=== PATIENT | male | born 1965 | race Caucasian/White ===

== ENCOUNTER 2017-05-29 06:26 | Inpatient (IN) | payer OTHER ==
[2017-05-29] MEDS ORDERED: CEFAZOLIN 1 GM INJ (07:00)
[2017-05-29] MEDS ORDERED: HEPARIN 1000 UNITS/NS (A-LINE) 0 ML (07:40)
[2017-05-29] MEDS ORDERED: THROMBIN 5000 UNIT VIAL (07:52)
[2017-05-29] MEDS ORDERED: MIDAZOLAM 1 MG/ML 2 ML INJ (08:08)
[2017-05-29] MEDS ORDERED: PHENYLephrine (100 MCG/ML) 5ML SYG ×2 (08:13→10:06)
[2017-05-29] MEDS ORDERED: hydrALAzine 20 MG INJ (09:26)
[2017-05-29] MEDS ORDERED: NALOXONE (0.4 MG/ML) INJ IV (09:30)
[2017-05-29] MEDS: CEFAZOLIN 1 GM INJ (09:30)
[2017-05-29] MEDS: GELATIN SIZE 100 SPONGE (10:44)
[2017-05-29] MEDS: HEPARIN 1000 UNITS/ML 10 ML INJ (10:44)
[2017-05-29] MEDS ORDERED: PROPOFOL 20 ML (11:13)
[2017-05-29] MEDS ORDERED: LIDOCAINE 100 MG SYRINGE (11:13)
[2017-05-29] MEDS ORDERED: NEOSTIGMINE 3 MG/3 ML SYRINGE (11:13)
[2017-05-29] MEDS ORDERED: ROCURONIUM 50 MG INJ (11:13)
[2017-05-29] MEDS ORDERED: GLYCOPYRROLATE 0.4 MG INJ (11:13)
[2017-05-29] MEDS ORDERED: ONDANSETRON 4 MG INJ (11:13)
[2017-05-29] MEDS ORDERED: FENTAnyl 50 MCG/ML VIAL (11:29)
[2017-05-29] MEDS ORDERED: HYDROmorphONE (0.2 MG/ML) 10ML SYG IV ×2 (11:29→11:30)
[2017-05-29] MEDS ORDERED: MEPERIDINE 25 MG INJ IV (11:30)
[2017-05-29] MEDS ORDERED: DIPHENHYDRAMINE 50 MG INJ IV (11:30)
[2017-05-29] MEDS ORDERED: FENTAnyl 50 MCG/ML VIAL IV (11:30)
[2017-05-29] MEDS: HYDROmorphONE 0.5 MG/0.5 ML SYG IV ×3 (11:36→18:52)
[2017-05-29] MEDS: THROMBIN 5000 UNIT VIAL (11:41)
[2017-05-29] MEDS: HYDROmorphONE (0.2 MG/ML) 10ML SYG IV ×2 (11:47→11:59)
[2017-05-29] MEDS: ONDANSETRON 4 MG INJ IV (11:48)
[2017-05-29] MEDS: CEFAZOLIN 2 GM/50 ML (PMX) 50 ML IVPB ×2 (15:41→22:01)
[2017-05-29] MEDS ORDERED: NICOTINE POLACRILEX 2 MG GUM BUCCAL (20:00)
[2017-05-29] MEDS ORDERED: ONDANSETRON 4 MG INJ IV (20:30)
[2017-05-29] MEDS ORDERED: GLUCOSE GEL 15 GRAM TUBE BUCCAL (21:00)
[2017-05-29] MEDS: INSULIN ASPART [NOVOLOG] 3 ML PEN SC (21:00)
[2017-05-29] MEDS ORDERED: GABAPENTIN 400 MG CAP PO (21:00)
[2017-05-29] MEDS ORDERED: DEXTROSE 50% 50 ML SYRINGE IV ×2 (21:00)
[2017-05-29] MEDS ORDERED: GLUCOSE GEL 15 GRAM TUBE PO ×2 (21:00)
[2017-05-29] MEDS ORDERED: GLUCAGON 1 MG INJ IM (21:00)
[2017-05-29] MEDS: HYDROCODONE/APAP (5/325) TAB PO (21:20)
[2017-05-29] MEDS: GABAPENTIN 400 MG CAP PO (21:21)
[2017-05-29] MEDS: metFORMIN 500 MG TAB PO (21:59)
[2017-05-29] MEDS: SILVER SULFADIAZINE 1% 25 GM CR TOP (21:59)
[2017-05-29] MEDS: DIVALPROEX (EC) 250 MG TAB PO (21:59)
[2017-05-29] MEDS: DIVALPROEX (EC) 500 MG TAB PO (21:59)
[2017-05-30] MEDS: HYDROmorphONE 0.5 MG/0.5 ML SYG IV ×2 (00:38→14:58)
[2017-05-30] MEDS: ACCU-CHEK XX (01:15)
[2017-05-30] MEDS: HYDROCODONE/APAP (5/325) TAB PO ×5 (02:20→21:33)
[2017-05-30] MEDS: CEFAZOLIN 2 GM/50 ML (PMX) 50 ML IVPB ×3 (05:26→21:32)
[2017-05-30 06:44] LABS: HEMATOCRIT 28.5 % (42.0-52.0); HEMOGLOBIN 9.8 g/dl (14.0-18.0)
[2017-05-30 07:06] LABS: ANION GAP 14 (8-16); BLOOD UREA NITROGEN 17 mg/dl (7-20); CALCIUM 8.9 mg/dl (8.4-10.2); CARBON DIOXIDE 24 mmol/L (21-31); CHLORIDE 100 mmol/L (97-110); CREATININE 0.55 mg/dl (0.61-1.24); GLUCOSE 137 mg/dl (70-220); POTASSIUM 3.6 mmol/L (3.5-5.1); SODIUM 134 mmol/L (135-144)
[2017-05-30] MEDS: INSULIN ASPART [NOVOLOG] 3 ML PEN SC ×4 (07:55→21:00)
[2017-05-30] MEDS: GABAPENTIN 400 MG CAP PO ×2 (08:15→21:31)
[2017-05-30] MEDS: LISINOPRIL 20 MG TAB PO (08:16)
[2017-05-30] MEDS: AMLODIPINE 5 MG TAB PO (08:16)
[2017-05-30] MEDS: metFORMIN 500 MG TAB PO ×2 (08:16→17:20)
[2017-05-30] MEDS: SILVER SULFADIAZINE 1% 25 GM CR TOP ×2 (08:17→21:32)
[2017-05-30] MEDS ORDERED: LISINOPRIL 10 MG TAB PO (09:00)
[2017-05-30] MEDS ORDERED: DOCUSATE SODIUM 100 MG CAP PO (14:56)
[2017-05-30] MEDS: DOCUSATE SODIUM 100 MG CAP PO (15:00)
[2017-05-30] MEDS: BISACODYL (EC) 5 MG TAB PO (17:20)
[2017-05-30] MEDS ORDERED: metFORMIN 500 MG TAB PO (17:55)
[2017-05-30] MEDS: DIVALPROEX (EC) 250 MG TAB PO (21:31)
[2017-05-30] MEDS: DIVALPROEX (EC) 500 MG TAB PO (21:31)
[2017-05-30] MEDS: LURASIDONE 80 MG PO (21:47)
[2017-05-30] MEDS: VARENICLINE 1 MG TAB PO (21:48)
[2017-05-31] MEDS: HYDROCODONE/APAP (5/325) TAB PO ×6 (01:33→22:45)
[2017-05-31] MEDS: ACCU-CHEK XX (01:42)
[2017-05-31] MEDS: CEFAZOLIN 2 GM/50 ML (PMX) 50 ML IVPB ×3 (05:33→21:00)
[2017-05-31] MEDS: DOCUSATE SODIUM 100 MG CAP PO ×2 (05:37→17:05)
[2017-05-31 06:46] LABS: ADD MAN DIFF? NO
[2017-05-31 06:53] LABS: WHITE BLOOD COUNT 9.5 10^3/ul (4.8-10.8)
[2017-05-31 06:53] LABS: EOSINOPHILS # 0.2 10^3/ul (0.0-0.5); EOSINOPHILS % 1.7 % (0.0-7.0); HEMATOCRIT 26.4 % (42.0-52.0); HEMOGLOBIN 9.1 g/dl (14.0-18.0); LYMPHOCYTES # 1.9 10^3/ul (0.8-2.9); LYMPHOCYTES % 20.2 % (15.0-51.0); MEAN CORPUSCULAR HEMOGLOBIN 33.3 pg (29.0-33.0); MEAN CORPUSCULAR HGB CONC 34.5 g/dl (32.0-37.0); MEAN CORPUSCULAR VOLUME 96.7 fl (82.0-101.0); MEAN PLATELET VOLUME 9.5 fl (7.4-10.4); MONOCYTE # 1.5 10^3/ul (0.3-0.9); MONOCYTES % 15.4 % (0.0-11.0); NEUTROPHIL # 5.9 10^3/ul (1.6-7.5); NEUTROPHILS % 62.3 % (39.0-77.0); PLATELET COUNT 315 10^3/UL (140-415); RED BLOOD COUNT 2.73 10^6/ul (4.70-6.10); RED CELL DISTRIBUTION WIDTH 13.5 % (11.5-14.5)
[2017-05-31 07:22] LABS: ANION GAP 12 (8-16); BLOOD UREA NITROGEN 10 mg/dl (7-20); CALCIUM 8.9 mg/dl (8.4-10.2); CARBON DIOXIDE 25 mmol/L (21-31); CHLORIDE 102 mmol/L (97-110); CREATININE 0.59 mg/dl (0.61-1.24); GLUCOSE 109 mg/dl (70-220); POTASSIUM 4.1 mmol/L (3.5-5.1); SODIUM 135 mmol/L (135-144)
[2017-05-31] MEDS: INSULIN ASPART [NOVOLOG] 3 ML PEN SC ×4 (07:55→20:49)
[2017-05-31] MEDS: GABAPENTIN 400 MG CAP PO ×2 (08:21→20:54)
[2017-05-31] MEDS: BISACODYL (EC) 5 MG TAB PO (08:22)
[2017-05-31] MEDS: VARENICLINE 1 MG TAB PO ×2 (08:22→20:53)
[2017-05-31] MEDS: metFORMIN 500 MG TAB PO ×2 (08:22→17:05)
[2017-05-31] MEDS: SILVER SULFADIAZINE 1% 25 GM CR TOP ×2 (08:23→20:54)
[2017-05-31] MEDS: AMLODIPINE 5 MG TAB PO (08:23)
[2017-05-31] MEDS: LISINOPRIL 20 MG TAB PO (08:23)
[2017-05-31] MEDS: HYDROmorphONE 0.5 MG/0.5 ML SYG IV ×3 (08:29→20:55)
[2017-05-31 10:06] LABS: MAGNESIUM 1.6 mg/dl (1.7-2.5)
[2017-05-31 10:44] LABS: THYROID STIMULATING HORMONE 0.177 MIU/L (0.465-4.680)
[2017-05-31] MEDS: MAGNESIUM SULFATE 3 GM in DEXTROSE 5% 100 ML IVPB (17:06)
[2017-05-31] MEDS: LURASIDONE 80 MG PO (20:52)
[2017-05-31] MEDS: DIVALPROEX (EC) 500 MG TAB PO (20:53)
[2017-05-31] MEDS: DIVALPROEX (EC) 250 MG TAB PO (20:54)
[2017-06-01] MEDS: ACCU-CHEK XX (01:27)
[2017-06-01] MEDS: HYDROCODONE/APAP (5/325) TAB PO ×5 (03:24→21:29)
[2017-06-01] MEDS: CEFAZOLIN 2 GM/50 ML (PMX) 50 ML IVPB ×3 (05:21→21:00)
[2017-06-01] MEDS: INSULIN ASPART [NOVOLOG] 3 ML PEN SC ×4 (07:55→21:00)
[2017-06-01] MEDS: metFORMIN 500 MG TAB PO ×2 (08:14→18:10)
[2017-06-01] MEDS: AMLODIPINE 5 MG TAB PO (08:14)
[2017-06-01] MEDS: LISINOPRIL 20 MG TAB PO (08:15)
[2017-06-01] MEDS: GABAPENTIN 400 MG CAP PO ×2 (08:15→21:01)
[2017-06-01] MEDS: VARENICLINE 1 MG TAB PO ×2 (08:16→21:02)
[2017-06-01] MEDS: SILVER SULFADIAZINE 1% 25 GM CR TOP ×2 (08:18→21:00)
[2017-06-01] MEDS: HYDROmorphONE 0.5 MG/0.5 ML SYG IV ×3 (11:26→23:40)
[2017-06-01] MEDS: DIVALPROEX (EC) 500 MG TAB PO (21:01)
[2017-06-01] MEDS: LURASIDONE 80 MG PO (21:02)
[2017-06-01] MEDS: DIVALPROEX (EC) 250 MG TAB PO (21:29)
[2017-06-02] MEDS: ACCU-CHEK XX (02:00)
[2017-06-02] MEDS: HYDROCODONE/APAP (5/325) TAB PO ×6 (03:30→23:52)
[2017-06-02] MEDS: CEFAZOLIN 2 GM/50 ML (PMX) 50 ML IVPB ×3 (06:31→21:03)
[2017-06-02] MEDS: HYDROmorphONE 0.5 MG/0.5 ML SYG IV ×4 (06:31→21:44)
[2017-06-02 07:29] LABS: ADD MAN DIFF? NO
[2017-06-02 07:33] LABS: WHITE BLOOD COUNT 7.3 10^3/ul (4.8-10.8)
[2017-06-02 07:33] LABS: EOSINOPHILS # 0.1 10^3/ul (0.0-0.5); EOSINOPHILS % 1.9 % (0.0-7.0); HEMATOCRIT 29.7 % (42.0-52.0); HEMOGLOBIN 10.3 g/dl (14.0-18.0); LYMPHOCYTES # 1.6 10^3/ul (0.8-2.9); LYMPHOCYTES % 22.4 % (15.0-51.0); MEAN CORPUSCULAR HEMOGLOBIN 33.1 pg (29.0-33.0); MEAN CORPUSCULAR HGB CONC 34.7 g/dl (32.0-37.0); MEAN CORPUSCULAR VOLUME 95.5 fl (82.0-101.0); MEAN PLATELET VOLUME 9.5 fl (7.4-10.4); MONOCYTES % 13.2 % (0.0-11.0); NEUTROPHIL # 4.5 10^3/ul (1.6-7.5); PLATELET COUNT 389 10^3/UL (140-415); RED BLOOD COUNT 3.11 10^6/ul (4.70-6.10); RED CELL DISTRIBUTION WIDTH 12.7 % (11.5-14.5)
[2017-06-02 07:34] LABS: PLATELET COUNT 396 10^3/UL (140-415)
[2017-06-02] MEDS: INSULIN ASPART [NOVOLOG] 3 ML PEN SC ×4 (07:50→21:00)
[2017-06-02 08:11] LABS: FREE T4 (FREE THYROXINE) 1.23 ng/dl (0.64-1.79)
[2017-06-02 08:15] LABS: INR 0.98; PARTIAL THROMBOPLASTIN TIME 31.4 Sec (25.0-35.0); PROTIME 13.1 Sec (11.9-14.9)
[2017-06-02] MEDS: GABAPENTIN 400 MG CAP PO ×2 (08:16→21:03)
[2017-06-02] MEDS: LISINOPRIL 20 MG TAB PO (08:16)
[2017-06-02] MEDS: metFORMIN 500 MG TAB PO ×2 (08:17→17:52)
[2017-06-02] MEDS: AMLODIPINE 5 MG TAB PO (08:17)
[2017-06-02] MEDS: VARENICLINE 1 MG TAB PO ×2 (08:18→21:00)
[2017-06-02] MEDS: SILVER SULFADIAZINE 1% 25 GM CR TOP ×2 (08:19→21:01)
[2017-06-02 08:27] LABS: THYROID STIMULATING HORMONE 0.716 MIU/L (0.465-4.680)
[2017-06-02 08:27] LABS: THROMBIN TIME 13.2 SEC (13.8-19.1)
[2017-06-02] MEDS ORDERED: VITAMIN A & D 5 GM OINT PACKET TOP (08:36)
[2017-06-02 09:08] LABS: ANION GAP 12 (8-16); BLOOD UREA NITROGEN 15 mg/dl (7-20); CALCIUM 9.6 mg/dl (8.4-10.2); CARBON DIOXIDE 25 mmol/L (21-31); CHLORIDE 101 mmol/L (97-110); CREATININE 0.63 mg/dl (0.61-1.24); GLUCOSE 116 mg/dl (70-220); POTASSIUM 3.9 mmol/L (3.5-5.1); SODIUM 134 mmol/L (135-144)
[2017-06-02] MEDS: DOCUSATE SODIUM 100 MG CAP PO (10:13)
[2017-06-02] MEDS: LURASIDONE 80 MG PO (21:00)
[2017-06-02] MEDS: DIVALPROEX (EC) 500 MG TAB PO (21:02)
[2017-06-02] MEDS: DIVALPROEX (EC) 250 MG TAB PO (21:02)
[2017-06-03] MEDS: HYDROmorphONE 0.5 MG/0.5 ML SYG IV ×7 (01:21→21:55)
[2017-06-03] MEDS: ACCU-CHEK XX (01:45)
[2017-06-03] MEDS: Insulin NOVOLOG SS MILD Algorithm (NPO/TPN/ENTERAL FEEDS) SC ×5 (05:00→20:15)
[2017-06-03] MEDS ORDERED: INSULIN ASPART [NOVOLOG] 3 ML PEN SC (05:00)
[2017-06-03] MEDS: CEFAZOLIN 2 GM/50 ML (PMX) 50 ML IVPB ×3 (05:15→21:23)
[2017-06-03] MEDS ORDERED: SUCCINYLCHOLINE CHLORIDE 100 MG/5 ML SYG IV (07:00)
[2017-06-03] MEDS: metFORMIN 500 MG TAB PO ×2 (07:18→17:35)
[2017-06-03 07:20] LABS: ADD MAN DIFF? NO
[2017-06-03 07:25] LABS: EOSINOPHILS # 0.3 10^3/ul (0.0-0.5); EOSINOPHILS % 4.9 % (0.0-7.0); HEMATOCRIT 29.9 % (42.0-52.0); HEMOGLOBIN 10.2 g/dl (14.0-18.0); LYMPHOCYTES # 1.7 10^3/ul (0.8-2.9); LYMPHOCYTES % 27.1 % (15.0-51.0); MEAN CORPUSCULAR HGB CONC 34.1 g/dl (32.0-37.0); MEAN CORPUSCULAR VOLUME 96.8 fl (82.0-101.0); MEAN PLATELET VOLUME 9.1 fl (7.4-10.4); MONOCYTES % 15.9 % (0.0-11.0); NEUTROPHIL # 3.2 10^3/ul (1.6-7.5); NEUTROPHILS % 51.8 % (39.0-77.0); PLATELET COUNT 432 10^3/UL (140-415); RED BLOOD COUNT 3.09 10^6/ul (4.70-6.10); RED CELL DISTRIBUTION WIDTH 12.7 % (11.5-14.5)
[2017-06-03 07:25] LABS: WHITE BLOOD COUNT 6.2 10^3/ul (4.8-10.8)
[2017-06-03 08:20] LABS: ANION GAP 14 (8-16); BLOOD UREA NITROGEN 14 mg/dl (7-20); CALCIUM 9.8 mg/dl (8.4-10.2); CARBON DIOXIDE 25 mmol/L (21-31); CHLORIDE 102 mmol/L (97-110); CREATININE 0.65 mg/dl (0.61-1.24); GLUCOSE 126 mg/dl (70-220); POTASSIUM 3.8 mmol/L (3.5-5.1); SODIUM 137 mmol/L (135-144)
[2017-06-03] MEDS: GABAPENTIN 400 MG CAP PO ×2 (08:26→20:06)
[2017-06-03] MEDS: VARENICLINE 1 MG TAB PO ×2 (08:26→20:05)
[2017-06-03] MEDS: LISINOPRIL 20 MG TAB PO (08:26)
[2017-06-03] MEDS: AMLODIPINE 5 MG TAB PO (08:26)
[2017-06-03] MEDS: SILVER SULFADIAZINE 1% 25 GM CR TOP ×2 (08:26→20:51)
[2017-06-03] MEDS ORDERED: HYDROmorphONE (0.2 MG/ML) 10ML SYG IV (10:00)
[2017-06-03] MEDS ORDERED: LIDOCAINE 1% (MDV) 20 ML INJ (10:04)
[2017-06-03] MEDS ORDERED: MIDAZOLAM 1 MG/ML 2 ML INJ (10:04)
[2017-06-03] MEDS ORDERED: PROPOFOL 20 ML (10:04)
[2017-06-03] MEDS ORDERED: ROCURONIUM 50 MG INJ (10:04)
[2017-06-03] MEDS ORDERED: CEFAZOLIN 1 GM INJ (10:28)
[2017-06-03] MEDS ORDERED: PHENYLephrine (100 MCG/ML) 5ML SYG (10:43)
[2017-06-03] MEDS ORDERED: FAMOTIDINE 20 MG INJ (10:59)
[2017-06-03] MEDS ORDERED: ONDANSETRON 4 MG INJ (10:59)
[2017-06-03] MEDS: POLYMYXIN/BACITRACIN 1L IRRIG (11:30)
[2017-06-03] MEDS: ROPIVACAINE 0.5 % 30 ML VIAL ×2 (11:33→11:34)
[2017-06-03] MEDS: THROMBIN 5000 UNIT VIAL (11:34)
[2017-06-03] MEDS: GELATIN SIZE 100 SPONGE (11:52)
[2017-06-03] MEDS ORDERED: SUGAMMADEX SODIUM 200 MG/2 ML VIAL IV (12:11)
[2017-06-03] MEDS: HYDROmorphONE (0.2 MG/ML) 10ML SYG IV ×2 (12:59→14:09)
[2017-06-03] MEDS: HYDROCODONE/APAP (5/325) TAB PO ×3 (14:30→22:56)
[2017-06-03] MEDS: LURASIDONE 80 MG PO (20:05)
[2017-06-03] MEDS: DIVALPROEX (EC) 250 MG TAB PO (20:06)
[2017-06-03] MEDS: DIVALPROEX (EC) 500 MG TAB PO (20:07)
[2017-06-03] MEDS ORDERED: Insulin NOVOLOG SS MILD Algorithm (SS with meals and bedtime) SC (21:00)
[2017-06-04] MEDS: HYDROmorphONE 0.5 MG/0.5 ML SYG IV ×8 (01:41→22:13)
[2017-06-04] MEDS: ACCUCHECK AT 2AM (Patients on SS coverage) XX (01:41)
[2017-06-04] MEDS: HYDROCODONE/APAP (5/325) TAB PO ×5 (03:16→20:00)
[2017-06-04] MEDS: CEFAZOLIN 2 GM/50 ML (PMX) 50 ML IVPB ×3 (05:29→21:38)
[2017-06-04] MEDS ORDERED: INSULIN ASPART [NOVOLOG] 3 ML PEN SC (07:25)
[2017-06-04] MEDS: Insulin NOVOLOG SS MILD Algorithm (SS with meals and bedtime) SC ×4 (07:25→20:05)
[2017-06-04 08:21] LABS: ADD MAN DIFF? NO
[2017-06-04] MEDS: metFORMIN 500 MG TAB PO ×2 (08:21→17:52)
[2017-06-04] MEDS: VARENICLINE 1 MG TAB PO ×2 (08:23→20:00)
[2017-06-04] MEDS: GABAPENTIN 400 MG CAP PO ×2 (08:24→20:05)
[2017-06-04] MEDS: LISINOPRIL 20 MG TAB PO (08:25)
[2017-06-04] MEDS: AMLODIPINE 5 MG TAB PO (08:26)
[2017-06-04] MEDS: SILVER SULFADIAZINE 1% 25 GM CR TOP ×2 (08:27→21:00)
[2017-06-04 08:30] LABS: EOSINOPHILS # 0.4 10^3/ul (0.0-0.5); EOSINOPHILS % 4.4 % (0.0-7.0); HEMOGLOBIN 8.6 g/dl (14.0-18.0); LYMPHOCYTES # 1.2 10^3/ul (0.8-2.9); LYMPHOCYTES % 14.2 % (15.0-51.0); MEAN CORPUSCULAR HEMOGLOBIN 33.1 pg (29.0-33.0); MEAN CORPUSCULAR HGB CONC 34.4 g/dl (32.0-37.0); MEAN CORPUSCULAR VOLUME 96.2 fl (82.0-101.0); MEAN PLATELET VOLUME 9.4 fl (7.4-10.4); MONOCYTE # 1.4 10^3/ul (0.3-0.9); MONOCYTES % 16.9 % (0.0-11.0); NEUTROPHIL # 5.2 10^3/ul (1.6-7.5); PLATELET COUNT 396 10^3/UL (140-415); RED CELL DISTRIBUTION WIDTH 12.5 % (11.5-14.5)
[2017-06-04 08:30] LABS: WHITE BLOOD COUNT 8.1 10^3/ul (4.8-10.8)
[2017-06-04 08:47] LABS: ANION GAP 12 (8-16); BLOOD UREA NITROGEN 8 mg/dl (7-20); CALCIUM 8.8 mg/dl (8.4-10.2); CARBON DIOXIDE 28 mmol/L (21-31); CHLORIDE 100 mmol/L (97-110); CREATININE 0.56 mg/dl (0.61-1.24); GLUCOSE 105 mg/dl (70-220); POTASSIUM 3.8 mmol/L (3.5-5.1); SODIUM 136 mmol/L (135-144)
[2017-06-04] MEDS: DIVALPROEX (EC) 250 MG TAB PO (20:01)
[2017-06-04] MEDS: DIVALPROEX (EC) 500 MG TAB PO (20:01)
[2017-06-04] MEDS: LURASIDONE 80 MG PO (20:01)
[2017-06-05] MEDS: ACCUCHECK AT 2AM (Patients on SS coverage) XX (01:48)
[2017-06-05] MEDS: HYDROmorphONE 0.5 MG/0.5 ML SYG IV ×7 (03:09→22:56)
[2017-06-05] MEDS: CEFAZOLIN 2 GM/50 ML (PMX) 50 ML IVPB ×3 (05:02→21:59)
[2017-06-05] MEDS: Insulin NOVOLOG SS MILD Algorithm (SS with meals and bedtime) SC ×4 (07:25→21:00)
[2017-06-05] MEDS: HYDROCODONE/APAP (5/325) TAB PO ×4 (08:02→21:54)
[2017-06-05] MEDS: metFORMIN 500 MG TAB PO ×2 (08:36→17:49)
[2017-06-05] MEDS: GABAPENTIN 400 MG CAP PO ×2 (08:36→20:27)
[2017-06-05] MEDS: AMLODIPINE 5 MG TAB PO (08:37)
[2017-06-05] MEDS: LISINOPRIL 20 MG TAB PO (08:40)
[2017-06-05] MEDS: VARENICLINE 1 MG TAB PO ×2 (08:41→20:30)
[2017-06-05] MEDS: SILVER SULFADIAZINE 1% 25 GM CR TOP ×2 (08:41→20:34)
[2017-06-05] MEDS: DIVALPROEX (EC) 500 MG TAB PO (20:27)
[2017-06-05] MEDS: LURASIDONE 80 MG PO (20:30)
[2017-06-05] MEDS: DIVALPROEX (EC) 250 MG TAB PO (21:53)
[2017-06-05] MEDS: NACL 0.9% 3 ML SYG IV (21:55)
[2017-06-06] MEDS: ACCUCHECK AT 2AM (Patients on SS coverage) XX (01:53)
[2017-06-06] MEDS: HYDROmorphONE 0.5 MG/0.5 ML SYG IV ×5 (04:29→22:30)
[2017-06-06] MEDS: HYDROCODONE/APAP (5/325) TAB PO ×4 (05:44→18:58)
[2017-06-06 06:22] LABS: ADD MAN DIFF? NO
[2017-06-06 06:37] LABS: EOSINOPHILS # 0.3 10^3/ul (0.0-0.5); EOSINOPHILS % 3.6 % (0.0-7.0); HEMATOCRIT 23.4 % (42.0-52.0); HEMOGLOBIN 8.2 g/dl (14.0-18.0); LYMPHOCYTES # 1.6 10^3/ul (0.8-2.9); LYMPHOCYTES % 21.4 % (15.0-51.0); MEAN CORPUSCULAR HEMOGLOBIN 33.6 pg (29.0-33.0); MEAN CORPUSCULAR VOLUME 95.9 fl (82.0-101.0); MEAN PLATELET VOLUME 9.1 fl (7.4-10.4); MONOCYTE # 1.4 10^3/ul (0.3-0.9); MONOCYTES % 18.5 % (0.0-11.0); NEUTROPHIL # 4.2 10^3/ul (1.6-7.5); NEUTROPHILS % 55.8 % (39.0-77.0); PLATELET COUNT 434 10^3/UL (140-415); RED BLOOD COUNT 2.44 10^6/ul (4.70-6.10); RED CELL DISTRIBUTION WIDTH 12.3 % (11.5-14.5)
[2017-06-06 06:37] LABS: WHITE BLOOD COUNT 7.6 10^3/ul (4.8-10.8)
[2017-06-06 07:21] LABS: ANION GAP 13 (8-16); BLOOD UREA NITROGEN 11 mg/dl (7-20); CALCIUM 9.2 mg/dl (8.4-10.2); CARBON DIOXIDE 25 mmol/L (21-31); CHLORIDE 102 mmol/L (97-110); CREATININE 0.61 mg/dl (0.61-1.24); GLUCOSE 110 mg/dl (70-220); POTASSIUM 3.7 mmol/L (3.5-5.1); SODIUM 136 mmol/L (135-144)
[2017-06-06] MEDS: Insulin NOVOLOG SS MILD Algorithm (SS with meals and bedtime) SC ×4 (07:25→20:38)
[2017-06-06] MEDS: GABAPENTIN 400 MG CAP PO ×2 (08:44→20:35)
[2017-06-06] MEDS: metFORMIN 500 MG TAB PO ×2 (08:44→18:03)
[2017-06-06] MEDS: LISINOPRIL 20 MG TAB PO (08:45)
[2017-06-06] MEDS: AMLODIPINE 5 MG TAB PO (08:45)
[2017-06-06] MEDS: VARENICLINE 1 MG TAB PO ×2 (08:47→20:38)
[2017-06-06] MEDS: SILVER SULFADIAZINE 1% 25 GM CR TOP ×2 (08:48→20:45)
[2017-06-06] MEDS: BISACODYL (EC) 5 MG TAB PO (10:13)
[2017-06-06] MEDS: DIVALPROEX (EC) 500 MG TAB PO (20:35)
[2017-06-06] MEDS: LURASIDONE 80 MG PO (20:37)
[2017-06-06] MEDS: DIVALPROEX (EC) 250 MG TAB PO (20:42)
[2017-06-06] MEDS: traMADol 50 MG TAB PO (21:09)
[2017-06-07] MEDS: ACCUCHECK AT 2AM (Patients on SS coverage) XX (02:00)
[2017-06-07] MEDS: HYDROmorphONE 0.5 MG/0.5 ML SYG IV (03:43)
[2017-06-07] MEDS: HYDROCODONE/APAP (5/325) TAB PO ×3 (04:21→12:52)
[2017-06-07] MEDS: HYDROmorphONE 1 MG/ML SYG IV ×3 (06:17→11:39)
[2017-06-07] MEDS: Insulin NOVOLOG SS MILD Algorithm (SS with meals and bedtime) SC ×2 (07:25→11:20)
[2017-06-07] MEDS: metFORMIN 500 MG TAB PO (07:47)
[2017-06-07] MEDS: GABAPENTIN 400 MG CAP PO (08:45)
[2017-06-07] MEDS: AMLODIPINE 5 MG TAB PO (08:46)
[2017-06-07] MEDS: LISINOPRIL 20 MG TAB PO (08:46)
[2017-06-07] MEDS: VARENICLINE 1 MG TAB PO (08:47)
[2017-06-07] MEDS: SILVER SULFADIAZINE 1% 25 GM CR TOP (08:48)
== END 2017-06-07 13:27 | disposition home or self-care (01) | DRG 454 ==
LOC: REC 06:26 → TEL 14:05
PROVIDERS: Internal Medicine
PROC: 0SG10A0 Fusion of 2 or more Lumbar Vertebral Joints with Interbody Fusion Device, Anterior Approach, Anterior Column, Open Approach (ICD-10-PCS; principal; 2017-05-29 08:00)
PROC: 0SG30A0 Fusion of Lumbosacral Joint with Interbody Fusion Device, Anterior Approach, Anterior Column, Open Approach (ICD-10-PCS; 2017-05-29 08:00)
PROC: 0SB20ZZ Excision of Lumbar Vertebral Disc, Open Approach (ICD-10-PCS; 2017-05-29 08:00)
PROC: 0SB40ZZ Excision of Lumbosacral Disc, Open Approach (ICD-10-PCS; 2017-05-29 08:00)
PROC: 0SG30K1 Fusion of Lumbosacral Joint with Nonautologous Tissue Substitute, Posterior Approach, Posterior Column, Open Approach (ICD-10-PCS; 2017-05-29 08:07)
PROC: 01NB0ZZ Release Lumbar Nerve, Open Approach (ICD-10-PCS; 2017-05-29 08:07)
PROC: 0SG10K1 Fusion of 2 or more Lumbar Vertebral Joints with Nonautologous Tissue Substitute, Posterior Approach, Posterior Column, Open Approach (ICD-10-PCS; 2017-05-29 08:07)
DX: M47.26 Other spondylosis with radiculopathy, lumbar region (principal); I47.2 Ventricular tachycardia; M47.27 Other spondylosis with radiculopathy, lumbosacral region; M21.372 Foot drop, left foot; F17.200 Nicotine dependence, unspecified, uncomplicated; F25.9 Schizoaffective disorder, unspecified; E11.9 Type 2 diabetes mellitus without complications; I10 Essential (primary) hypertension
CPT/HCPCS: 72100; 72131; 80048; 82962; 83735; 84439; 84443; 85014; 85018; 85025; 85049; 85610; 85670; 85730; 86850; 86900; 86901; 86920; 87086; 88304; 93306; 97116; 97162; 97530